=== PATIENT | female | born 1990 ===

== ENCOUNTER 2018-11-02 12:25 | Inpatient (IN) | payer OTHER ==
[~2018-11-02] VITALS: Ht 165.1 cm; Wt 77.6 kg
[~2018-11-02 12:25] MED LIST: CONEX TABLET1 EACH PO; FERROPLEX PO; FOLIC ACID1 MG PO; PROTONIX20 MG PO; PYRIDIUM200 MG PO; SEPTRA DS TABLE1 TAB PO; SULFAMETHOXAZOL1 TA6 PO; ZANTAC15 MG/ML PO
[2018-12-01] MEDS ORDERED: PRENATAL TABLE1 EAC1 PO (04:11)
[2018-12-01] MEDS ORDERED: IRON PO (04:12)
== END 2018-12-03 11:54 | DRG 768 ==
LOC: OB/GYN 12-01 03:22 → LDR 12-01 03:22 → OB/GYN 12-01 11:32 → LDR 12-01 12:21 → OB/GYN 12-01 13:44
PROVIDERS: ADMIT Specialist
PROC: 10E0XZZ Delivery of Products of Conception, External Approach (ICD-10-PCS; principal; 2018-12-01)
PROC: 0DQP0ZZ Repair Rectum, Open Approach (ICD-10-PCS; 2018-12-01)
PROC: 0UQC7ZZ Repair Cervix, Via Natural or Artificial Opening (ICD-10-PCS; 2018-12-01)
PROC: 10907ZC Drainage of Amniotic Fluid, Therapeutic from Products of Conception, Via Natural or Artificial Opening (ICD-10-PCS; 2018-12-01)
PROC: 3E033VJ Introduction of Other Hormone into Peripheral Vein, Percutaneous Approach (ICD-10-PCS; 2018-12-01)
PROC: 4A1HXCZ Monitoring of Products of Conception, Cardiac Rate, External Approach (ICD-10-PCS; 2018-12-01)
DX: O70.3 Fourth degree perineal laceration during delivery (principal); Z37.0 Single live birth; O71.3 Obstetric laceration of cervix; Z3A.39 39 weeks gestation of pregnancy

== ENCOUNTER 2020-11-25 11:00 | Inpatient (IN) | payer OTHER ==
[~2020-11-25] VITALS: Ht 165.1 cm; Wt 77.6 kg
[~2020-11-25 11:00] MED LIST changes: +IRON PO; +PRENATAL TABLE1 EAC1 PO
[2020-12-14] MEDS ORDERED: DOCUSATE SODIU100 MG PO (13:42)
[2020-12-14] MEDS ORDERED: HYDROCORTISO453.6 G1 RECTAL (13:43)
[2020-12-14] MEDS ORDERED: PRENATAL TABLE1 EAC1 PO (13:43)
[2020-12-14] MEDS ORDERED: Ferro-Plex CAPLET PO (13:43)
== END 2020-12-14 13:56 | disposition home or self-care (01) | DRG 807 ==
LOC: SURG-SUITE 12-11 21:20 → LDR 12-11 21:20 → SURG-SUITE 12-12 02:15 → SURH 12-16 11:00
PROVIDERS: ADMIT Specialist; ATTEND Specialist
PROC: 4A1HXFZ Monitoring of Products of Conception, Cardiac Rhythm, External Approach (ICD-10-PCS; 2020-12-11)
PROC: 10E0XZZ Delivery of Products of Conception, External Approach (ICD-10-PCS; principal; 2020-12-12)
PROC: 0HQ9XZZ Repair Perineum Skin, External Approach (ICD-10-PCS; 2020-12-12)
DX: O70.0 First degree perineal laceration during delivery (principal); Z37.0 Single live birth; Z3A.39 39 weeks gestation of pregnancy; Z20.822 Contact with and (suspected) exposure to COVID-19

== ENCOUNTER 2021-12-18 12:00 | Outpatient (CLI) | payer OTHER ==
[~2021-12-18 12:00] MED LIST changes: +DOCUSATE SODIU100 MG PO; +Ferro-Plex CAPLET PO; +HYDROCORTISO453.6 G1 RECTAL
== END 2021-12-18 12:30 | disposition home or self-care (01) ==
LOC: PPH VACUNA 12:00
PROVIDERS: ATTEND Emergency Medicine Pediatric Emergency Medicine
DX: Z23 Encounter for immunization (principal)